=== PATIENT | male | born 1950 | race Caucasian/White ===

== ENCOUNTER 2018-05-07 08:09 | Emergency (ER) | payer OTHER ==
[~2018-05-07] VITALS: Ht 180.3 cm; Wt 71.7 kg
[2018-05-07 08:13] VITALS: BP 133/82
== END 2018-05-07 09:17 | disposition home or self-care (01) ==
LOC: ER 08:09
DX: T17.228A Food in pharynx causing other injury, initial encounter (principal); X58.XXXA Exposure to other specified factors, initial encounter